=== PATIENT | male | born 1990 | race Caucasian/White ===

== ENCOUNTER 2018-09-28 03:38 | Emergency (ER) | payer MEDICAID ==
[~2018-09-28] VITALS: Ht 175.3 cm; Wt 135.0 kg
[2018-09-28 03:44] VITALS: BP 164/91
[2018-09-28] MEDS ORDERED: LISI-600 PO (03:58)
[2018-09-28] MEDS ORDERED: triamcinolone acetonide 40mg/ml inj IM ONE (04:05)
== END 2018-09-28 04:12 | disposition home or self-care (01) ==
LOC: ER 03:38
DX: L23.7 Allergic contact dermatitis due to plants, except food (principal); I10 Essential (primary) hypertension; G89.29 Other chronic pain; Z79.899 Other long term (current) drug therapy
CPT/HCPCS: 96372; 99283; J3301